=== PATIENT | male | born 1950 | race African-American/Black ===

== ENCOUNTER 2017-01-29 17:29 | Emergency (ER) | payer MEDICAID ==
[~2017-01-29] VITALS: Ht 193 cm; Wt 99.8 kg
[~2017-01-29 17:29] MED LIST: AMLO5TAB2; HYDR7.5T OR; ISOS20TA56; LISI-275; METO-5; SIMV-8
[2017-01-29] MEDS ORDERED: HYDROmorphone HCL 2 MG/ML VL IM ONE (19:00)
[2017-01-29] MEDS ORDERED: ONDANSETRON HCL 4 MG/2 ML VIAL IM ONE (19:00)
[2017-01-29 20:30] VITALS: BP 155/86
== END 2017-01-29 21:39 | disposition home or self-care (01) ==
LOC: EDBD 17:29 → EDUNIT# 17:29 → ER 17:29
DX: S33.5XXA Sprain of ligaments of lumbar spine, initial encounter (principal); M54.16 Radiculopathy, lumbar region; M79.1 Myalgia; J44.9 Chronic obstructive pulmonary disease, unspecified; I25.10 Atherosclerotic heart disease of native coronary artery without angina pectoris; I10 Essential (primary) hypertension; E78.5 Hyperlipidemia, unspecified; F17.210 Nicotine dependence, cigarettes, uncomplicated; G89.29 Other chronic pain; I25.2 Old myocardial infarction; X58.XXXA Exposure to other specified factors, initial encounter; Y93.89 Activity, other specified; Y99.8 Other external cause status; Y92.89 Other specified places as the place of occurrence of the external cause; Z96.89 Presence of other specified functional implants; Z79.899 Other long term (current) drug therapy
CPT/HCPCS: 72131; 93005; 96372; 99284; J1170; J2405

== ENCOUNTER 2018-12-08 19:40 | Emergency (ER) | payer OTHER, MEDICAID ==
[~2018-12-08] VITALS: Ht 193 cm; Wt 117.0 kg
[~2018-12-08 19:40] MED LIST changes: +AMLO5TAB13; -AMLO5TAB2
[2018-12-08] MEDS ORDERED: HYDROcodone-ACET 10/325MG TAB ONE (19:47)
[2018-12-08] MEDS ORDERED: HYDROcodone-ACET 10/325MG TAB PO ONE (21:00)
[2018-12-09 00:57] LABS: Basophils # (auto) 0.1 uL; Basophils % (auto) 0.8 % (0.0-2.0); Eosinophils # (auto) 0.3 uL; Eosinophils % (auto) 3.2 % (0.0-7.0); Hematocrit 46.6 % (41.0-53.0); Hemoglobin 16.1 g/dL (13.5-17.5); Lymphocytes # (auto) 3.4 uL; Lymphocytes % (auto) 31.7 % (10.0-50.0); Mean Corpuscular Hemoglobin 32.9 pg (28.0-32.0); Mean Corpuscular Hgb Conc. 34.5 g/dL (32.0-36.0); Mean Corpuscular Volume 95.6 fL (80.0-100.0); Monocytes # (auto) 1.2 uL; Neutrophils # (auto) 5.7 uL; Neutrophils % (auto) 53.3 % (37.0-80.0); Nucleated Red Blood Cells % 0.1 %; Platelet Count (auto) 180 10^3/uL (140-450); Red Blood Cells 4.88 10^6/uL (4.5-5.90); White Blood Cell 10.7 10^3/uL (4.4-10.8)
[2018-12-09 01:13] LABS: Albumin 3.3 g/dL (3.4-5.0); BUN/Creatinine Ratio 18.9; Calcium 8.3 mg/dL (8.5-10.1); Potassium 3.8 mmol/L (3.5-5.1)
[2018-12-09 01:15] LABS: Bilirubin, Total 1.2 mg/dL (0.2-1.0); Total Protein 8.4 g/dL (6.4-8.2)
[2018-12-09 05:21] VITALS: BP 126/71
== END 2018-12-09 05:21 | disposition left against medical advice (07) ==
LOC: EDBD 19:40 → EDUNIT# 19:40 → ER 19:40
DX: R51 Headache (principal); J02.9 Acute pharyngitis, unspecified; Z53.21 Procedure and treatment not carried out due to patient leaving prior to being seen by health care provider
CPT/HCPCS: 36415; 80053; 85025

== ENCOUNTER → 2020-05-24 | Emergency (ER) | payer OTHER, MEDICAID ==
[~2020-05-24] VITALS: Ht 182.9 cm; Wt 113.4 kg
[~2020-05-24] MED LIST changes: -AMLO5TAB13; +AMLO5TAB15; +MORPHINE SULFATE 4 MG/ML SYR/VIAL IV ONE; +ONDANSETRON HCL 4 MG/2 ML VIAL IV ONE; +SODIUM CHLORIDE 0.9% 500 ML IVB ONE
[2020-05-24 20:04] VITALS: BP 110/60
== END | disposition home or self-care (01) ==
LOC: EDUNIT# 18:38 → EDBD 18:38 → ER 18:43
DX: R10.13 Epigastric pain (principal); R11.0 Nausea; R30.0 Dysuria

== ENCOUNTER → 2021-11-17 | Emergency (ER) | payer OTHER, MEDICAID ==
[~2021-11-17] VITALS: Ht 193 cm; Wt 95.3 kg
[~2021-11-17] MED LIST changes: +AMLO-489; -AMLO5TAB15; +ISOS20TA5; -ISOS20TA56; -METO-5; +METO1TAB77; -MORPHINE SULFATE 4 MG/ML SYR/VIAL IV ONE; -ONDANSETRON HCL 4 MG/2 ML VIAL IV ONE; -SODIUM CHLORIDE 0.9% 500 ML IVB ONE
[2021-11-17 12:05] VITALS: BP 115/66
== END | disposition left against medical advice (07) ==
LOC: EDUNIT# 11:39 → ER 11:40 → EDBD 11:40
DX: R10.9 Unspecified abdominal pain (principal); R11.0 Nausea; Z53.21 Procedure and treatment not carried out due to patient leaving prior to being seen by health care provider

== ENCOUNTER 2022-05-20 11:19 | Inpatient (IN) | payer OTHER, MEDICAID ==
[~2022-05-20] VITALS: Ht 185.4 cm; Wt 70.0 kg
[2022-05-20] MEDS ORDERED: SODIUM CHLORIDE 0.9% 500 ML IVB ONE (11:30)
[2022-05-20 12:31] LABS: Basophils # (auto) 0.1 10 ^3/uL (0-0.2); Basophils % (auto) 0.5 % (0.0-2.0); Eosinophils # (auto) 0 10 ^3/uL (0-0.8); Hematocrit 39.2 % (41.0-53.0); Hemoglobin 13.3 g/dL (13.5-17.5); Lymphocytes # (auto) 1.8 10 ^3/uL (0.4-5.4); Lymphocytes % (auto) 12.4 % (10.0-50.0); Mean Corpuscular Hemoglobin 33.3 pg (28.0-32.0); Mean Corpuscular Hgb Conc. 33.8 g/dL (32.0-36.0); Mean Corpuscular Volume 98.4 fL (80.0-100.0); Neutrophils # (auto) 11.6 10 ^3/uL (1.6-8.6); Neutrophils % (auto) 80.1 % (37.0-80.0); Red Blood Cells 3.99 10^6/uL (4.5-5.90); Red Cell Distribution Width 13.9 % (11.8-14.3); White Blood Cell 14.5 10^3/uL (4.4-10.8)
[2022-05-20 12:49] LABS: Alanine Aminotransferase 129 U/L (16-61); Albumin 2.7 g/dL (3.4-5.0); Anion Gap 14 (5-15); Blood Alcohol < 3.0 mg/dL (0-5); Blood Urea Nitrogen 71 mg/dL (7-18); Calcium 9.6 mg/dL (8.5-10.1); Carbon Dioxide 18 mmol/L (21-32); Chloride 105 mmol/L (98-107); Glucose 123 mg/dL (74-106); Magnesium 3.2 mg/dL (1.6-2.6); Potassium 4.6 mmol/L (3.5-5.1); Sodium 137 mmol/L (136-145)
[2022-05-20 13:08] LABS: Alkaline Phosphatase 667 U/L (45-117); Aspartate Aminotransferase 198 U/L (15-37); BUN/Creatinine Ratio 13.7; Bilirubin, Total 12.1 mg/dL (0.2-1.0); GFR African American 14 mL/min; GFR Non-African American 12 mL/min; Total Protein 9.8 g/dL (6.4-8.2)
[2022-05-20] MEDS ORDERED: ONDANSETRON HCL 4 MG/2 ML VIAL IV ONE (14:45)
[2022-05-20] MEDS ORDERED: MORPHINE SULFATE 4 MG/ML SYR/VIAL IV ONE (14:45)
[2022-05-20] MEDS ORDERED: cefTRIAXone 1GM/50ML D5W 50 ML IV ONE (23:15)
[2022-05-20] MEDS ORDERED: DEXTROSE (50%) 50ML SYRG IV PRN (23:15)
[2022-05-20] MEDS ORDERED: DOCUSATE SOD 100 MG CAP PO PRN (23:15)
[2022-05-20] MEDS ORDERED: ONDANSETRON HCL 4 MG/2 ML VIAL IV PRN (23:15)
[2022-05-21] VITALS (7 sets, daily range): BP systolic 96–112; BP diastolic 56–84
[2022-05-21] MEDS ORDERED: NITROGLYCERIN 0.4 MG SL TAB SL PRN (00:15)
[2022-05-21] MEDS: MORPHINE SULFATE INJ 2 MG/ml SYRG IV PRN ×5 (01:07→23:17)
[2022-05-21] MEDS ORDERED: ALBUMIN 25% 50 ML IV ONE (06:15)
[2022-05-21] MEDS: InsuLIN REG 1unit/0.01ml Soln (100units/ml) SC SCH ×4 (07:00→22:00)
[2022-05-21] MEDS: SODIUM CHLOR 0.9% PF (SALINE LOCK) 10ML VIAL/SYR IV SCH ×3 (07:50→23:33)
[2022-05-21] MEDS: ACCU-CHEK COMFORT CURVE STRIP VI SCH ×4 (07:52→23:33)
[2022-05-21] MEDS: ZINC SULFATE 220mg CAP or TAB PO SCH (10:12)
[2022-05-21] MEDS: FAMOTIDINE (10MG/ML) 2ML VL IV SCH (10:12)
[2022-05-21] MEDS: MULTIPLE VITAMIN TAB PO SCH (10:13)
[2022-05-21] MEDS: HEPARIN SODIUM (PORCINE) 5000 UNITS/ML 1ML VIAL SC SCH ×2 (10:13→23:22)
[2022-05-21] MEDS: ASCORBIC ACID 500 MG TAB PO SCH ×2 (10:13→23:20)
[2022-05-21 10:34] LABS: Basophils # (auto) 0 10 ^3/uL (0-0.2); Basophils % (auto) 0.2 % (0.0-2.0); Eosinophils # (auto) 0 10 ^3/uL (0-0.8); Eosinophils % (auto) 0.3 % (0.0-7.0); Hemoglobin 12.8 g/dL (13.5-17.5); Lymphocytes % (auto) 12.5 % (10.0-50.0); Mean Corpuscular Hemoglobin 34.6 pg (28.0-32.0); Mean Corpuscular Hgb Conc. 34.5 g/dL (32.0-36.0); Mean Corpuscular Volume 100.5 fL (80.0-100.0); Monocytes % (auto) 6.5 % (0.0-12.0); Neutrophils # (auto) 12.9 10 ^3/uL (1.6-8.6); Neutrophils % (auto) 80.5 % (37.0-80.0); Nucleated Red Blood Cells % 0.1 %; Red Blood Cells 3.68 10^6/uL (4.5-5.90); Red Cell Distribution Width 14.2 % (11.8-14.3); White Blood Cell 16.1 10^3/uL (4.4-10.8)
[2022-05-21 10:54] LABS: Albumin 2.4 g/dL (3.4-5.0); Calcium 8.9 mg/dL (8.5-10.1); Potassium 4.1 mmol/L (3.5-5.1)
[2022-05-21 10:57] LABS: BUN/Creatinine Ratio 20.1; Bilirubin, Total 12.4 mg/dL (0.2-1.0)
[2022-05-21] MEDS: ALBUMIN 25% 50 ML IV SCH (11:15)
[2022-05-21 13:58] LABS: Amylase 143 U/L (25-115); Lipase 626 U/L (73-393)
[2022-05-21] MEDS: SODIUM CHLORIDE 0.9% 1,000 ML IV SCH (15:03)
[2022-05-21] MEDS ORDERED: metroNIDAZOLE 500MG/100ML 100 ML IV ONE (15:15)
[2022-05-21] MEDS: metroNIDAZOLE 500MG/100ML 100 ML IV SCH (23:26)
[2022-05-22] MEDS: cefTRIAXone 1GM/50ML D5W 50 ML IV SCH ×2 (00:57→22:01)
[2022-05-22] MEDS: SODIUM CHLORIDE 0.9% 1,000 ML IV SCH ×3 (01:14→22:10)
[2022-05-22] MEDS: ALBUMIN 25% 50 ML IV SCH ×2 (04:01→20:11)
[2022-05-22 05:00] VITALS: BP 99/54
[2022-05-22] MEDS: metroNIDAZOLE 500MG/100ML 100 ML IV SCH ×3 (06:23→22:01)
[2022-05-22] MEDS: SODIUM CHLOR 0.9% PF (SALINE LOCK) 10ML VIAL/SYR IV SCH ×3 (06:32→22:09)
[2022-05-22] MEDS: ACCU-CHEK COMFORT CURVE STRIP VI SCH ×4 (06:33→22:02)
[2022-05-22] MEDS: InsuLIN REG 1unit/0.01ml Soln (100units/ml) SC SCH ×4 (06:33→22:00)
[2022-05-22] MEDS ORDERED: ALBUMIN 25% 50 ML IV ONE (07:15)
[2022-05-22 07:47] LABS: Basophils # (auto) 0 10 ^3/uL (0-0.2); Basophils % (auto) 0.2 % (0.0-2.0); Eosinophils # (auto) 0 10 ^3/uL (0-0.8); Eosinophils % (auto) 0.3 % (0.0-7.0); Lymphocytes # (auto) 1.1 10 ^3/uL (0.4-5.4); Lymphocytes % (auto) 8.7 % (10.0-50.0); Mean Corpuscular Hemoglobin 33.1 pg (28.0-32.0); Mean Corpuscular Hgb Conc. 33.2 g/dL (32.0-36.0); Mean Corpuscular Volume 99.6 fL (80.0-100.0); Monocytes # (auto) 0.8 10 ^3/uL (0-1.3); Monocytes % (auto) 6.4 % (0.0-12.0); Neutrophils # (auto) 10.5 10 ^3/uL (1.6-8.6); Neutrophils % (auto) 84.4 % (37.0-80.0); Red Blood Cells 3.62 10^6/uL (4.5-5.90); Red Cell Distribution Width 14.3 % (11.8-14.3); White Blood Cell 12.5 10^3/uL (4.4-10.8)
[2022-05-22 08:00] VITALS: BP 98/76
[2022-05-22 08:11] LABS: Potassium 3.6 mmol/L (3.5-5.1)
[2022-05-22 08:24] LABS: Albumin 2.6 g/dL (3.4-5.0); BUN/Creatinine Ratio 27.5; Bilirubin, Total 11.2 mg/dL (0.2-1.0); Total Protein 8.6 g/dL (6.4-8.2)
[2022-05-22] MEDS: MORPHINE SULFATE INJ 2 MG/ml SYRG IV PRN ×4 (09:00→19:42)
[2022-05-22] MEDS: ZINC SULFATE 220mg CAP or TAB PO SCH (11:28)
[2022-05-22] MEDS: FAMOTIDINE (10MG/ML) 2ML VL IV SCH (11:28)
[2022-05-22] MEDS: MULTIPLE VITAMIN TAB PO SCH (11:29)
[2022-05-22] MEDS: HEPARIN SODIUM (PORCINE) 5000 UNITS/ML 1ML VIAL SC SCH ×2 (11:30→22:00)
[2022-05-22] MEDS: ASCORBIC ACID 500 MG TAB PO SCH ×2 (11:30→22:00)
[2022-05-22 20:00] VITALS: BP 88/59
[2022-05-22 22:00] VITALS: BP 88/55
[2022-05-23 05:00] VITALS: BP 91/54
[2022-05-23] MEDS: metroNIDAZOLE 500MG/100ML 100 ML IV SCH ×3 (06:04→21:43)
[2022-05-23] MEDS: SODIUM CHLORIDE 0.9% 1,000 ML IV SCH ×2 (06:09→17:43)
[2022-05-23] MEDS: SODIUM CHLOR 0.9% PF (SALINE LOCK) 10ML VIAL/SYR IV SCH ×3 (06:10→21:44)
[2022-05-23] MEDS: ACCU-CHEK COMFORT CURVE STRIP VI SCH ×2 (06:11→11:30)
[2022-05-23] MEDS: InsuLIN REG 1unit/0.01ml Soln (100units/ml) SC SCH ×2 (06:11→11:30)
[2022-05-23 06:30] LABS: Calcium 8.5 mg/dL (8.5-10.1); Potassium 3.5 mmol/L (3.5-5.1)
[2022-05-23 06:37] LABS: Albumin 2.4 g/dL (3.4-5.0); BUN/Creatinine Ratio 36.3; Bilirubin, Total 10.2 mg/dL (0.2-1.0); Total Protein 7.6 g/dL (6.4-8.2)
[2022-05-23 06:55] LABS: Hematocrit 33.4 % (41.0-53.0); Hemoglobin 11.4 g/dL (13.5-17.5); Mean Corpuscular Hgb Conc. 34.1 g/dL (32.0-36.0); Mean Corpuscular Volume 99.6 fL (80.0-100.0); Red Blood Cells 3.36 10^6/uL (4.5-5.90); Red Cell Distribution Width 14.2 % (11.8-14.3); White Blood Cell 11.8 10^3/uL (4.4-10.8)
[2022-05-23 07:06] LABS: Band Neutrophils % (manual) 0; Basophils % (manual) 0 (0.0-2.0); Blast Cells 0; Eosinophils % (manual) 0 (0-7); Metamyelocytes % 0; Myelocytes % 0; Promyelocytes % 0; Reactive Lymphocytes 0
[2022-05-23 08:00] VITALS: BP 112/86
[2022-05-23 09:00] VITALS: BP 96/70
[2022-05-23] MEDS: MORPHINE SULFATE INJ 2 MG/ml SYRG IV PRN (09:00)
[2022-05-23 09:26] LABS: Lymphocytes % (manual) 6 (10.0-50.0); Monocytes % (manual) 3 (0-12)
[2022-05-23] MEDS: ASCORBIC ACID 500 MG TAB PO SCH (10:00)
[2022-05-23] MEDS: MULTIPLE VITAMIN TAB PO SCH (10:00)
[2022-05-23] MEDS: ZINC SULFATE 220mg CAP or TAB PO SCH (10:00)
[2022-05-23] MEDS: FAMOTIDINE (10MG/ML) 2ML VL IV SCH (11:25)
[2022-05-23] MEDS: HEPARIN SODIUM (PORCINE) 5000 UNITS/ML 1ML VIAL SC SCH ×2 (11:26→21:50)
[2022-05-23 13:00] VITALS: BP 112/53
[2022-05-23] MEDS ORDERED: MORPHINE SULF 15mg ER tab PO ONE (14:30)
[2022-05-23] MEDS: HYDROmorphone HCL 2 MG/ML VL/or syr IV PRN (15:00)
[2022-05-23 16:42] LABS: Urine Bacteria NONE SEEN /hpf (None Seen); Urine Blood Negative /uL (Negative); Urine Hyaline Cast FEW /lpf (0 - 2); Urine WBC 3 /hpf (0 - 3)
[2022-05-23 17:00] VITALS: BP 99/69
[2022-05-23] MEDS: MORPHINE SULF 15mg ER tab PO SCH (21:43)
[2022-05-23] MEDS: cefTRIAXone 1GM/50ML D5W 50 ML IV SCH (21:44)
[2022-05-23 22:00] VITALS: BP 103/74
[2022-05-24] MEDS: SODIUM CHLORIDE 0.9% 1,000 ML IV SCH ×2 (01:41→12:03)
[2022-05-24 05:00] VITALS: BP 110/75
[2022-05-24] MEDS: SODIUM CHLOR 0.9% PF (SALINE LOCK) 10ML VIAL/SYR IV SCH ×3 (05:37→21:33)
[2022-05-24] MEDS: metroNIDAZOLE 500MG/100ML 100 ML IV SCH (05:37)
[2022-05-24 09:00] VITALS: BP 96/52
[2022-05-24] MEDS: MORPHINE SULF 15mg ER tab PO SCH ×2 (10:10→21:28)
[2022-05-24] MEDS: FAMOTIDINE (10MG/ML) 2ML VL IV SCH (10:10)
[2022-05-24] MEDS: MULTIPLE VITAMIN TAB PO SCH (10:10)
[2022-05-24] MEDS: HEPARIN SODIUM (PORCINE) 5000 UNITS/ML 1ML VIAL SC SCH ×2 (11:07→21:29)
[2022-05-24] MEDS: HYDROmorphone HCL 2 MG/ML VL/or syr IV PRN ×2 (11:28→17:05)
[2022-05-24 13:00] VITALS: BP 110/62
[2022-05-24 16:43] VITALS: BP 95/60
[2022-05-24 20:55] VITALS: BP 102/65
[2022-05-24] MEDS: Ensure HIGH Protein Chocolate 8oz Bottle PO SCH (21:33)
[2022-05-25] MEDS: SODIUM CHLORIDE 0.9% 1,000 ML IV SCH (04:13)
[2022-05-25 04:40] VITALS: BP 98/67
[2022-05-25] MEDS: SODIUM CHLOR 0.9% PF (SALINE LOCK) 10ML VIAL/SYR IV SCH ×2 (06:10→14:45)
[2022-05-25] MEDS ORDERED: ALBUMIN 5% 250 ML IV ONE (06:30)
[2022-05-25 09:00] VITALS: BP 101/74
[2022-05-25] MEDS: FAMOTIDINE (10MG/ML) 2ML VL IV SCH (09:11)
[2022-05-25] MEDS: HEPARIN SODIUM (PORCINE) 5000 UNITS/ML 1ML VIAL SC SCH (09:11)
[2022-05-25] MEDS: MORPHINE SULF 15mg ER tab PO SCH (09:11)
[2022-05-25] MEDS: MULTIPLE VITAMIN TAB PO SCH (09:11)
[2022-05-25] MEDS: Ensure HIGH Protein Chocolate 8oz Bottle PO SCH ×2 (09:12→13:48)
[2022-05-25] MEDS: HYDROmorphone HCL 2 MG/ML VL/or syr IV PRN ×2 (11:07→14:56)
[2022-05-25 13:00] VITALS: BP 104/74
[2022-05-25 14:33] VITALS: BP 104/74
[2022-05-25 15:15] VITALS: BP 101/48
== END 2022-05-25 16:31 | disposition hospice, home (50) | DRG 441 ==
LOC: EDUNIT# 11:19 → ER 11:19 → TELE-WESTW 05-21 00:07
PROVIDERS: ADMIT Nurse Practitioner Family; ATTEND Internal Medicine
DX: K72.90 Hepatic failure, unspecified without coma (principal); K85.90 Acute pancreatitis without necrosis or infection, unspecified; N17.0 Acute kidney failure with tubular necrosis; E87.2 Acidosis; E44.0 Moderate protein-calorie malnutrition; I13.0 Hypertensive heart and chronic kidney disease with heart failure and stage 1 through stage 4 chronic kidney disease, or unspecified chronic kidney disease; Z66 Do not resuscitate; E88.09 Other disorders of plasma-protein metabolism, not elsewhere classified; E86.0 Dehydration; I50.9 Heart failure, unspecified; N18.9 Chronic kidney disease, unspecified; Z20.822 Contact with and (suspected) exposure to COVID-19; J44.9 Chronic obstructive pulmonary disease, unspecified; E78.5 Hyperlipidemia, unspecified; F17.210 Nicotine dependence, cigarettes, uncomplicated; I25.10 Atherosclerotic heart disease of native coronary artery without angina pectoris; I71.4 Abdominal aortic aneurysm, without rupture; K59.00 Constipation, unspecified; N40.0 Benign prostatic hyperplasia without lower urinary tract symptoms; Z80.9 Family history of malignant neoplasm, unspecified; Z88.8 Allergy status to other drugs, medicaments and biological substances; I25.2 Old myocardial infarction; Z51.5 Encounter for palliative care; Z85.07 Personal history of malignant neoplasm of pancreas; Z95.0 Presence of cardiac pacemaker; Z68.20 Body mass index [BMI] 20.0-20.9, adult; Z90.49 Acquired absence of other specified parts of digestive tract
CPT/HCPCS: 36415; 71045; 74176; 76775; 80053; 80320; 81001; 82150; 82962; 83036; 83690; 83735; 84484; 85007; 85025; 85027; 93005; 93306; 96361; 96365; 96375; 96376; G0378; J0696; J2405; J3490